=== PATIENT | female | born 1950 | race Caucasian/White ===

== ENCOUNTER 2019-11-23 04:20 | Day surgery (SDC) | payer OTHER ==
[2019-11-21 17:36] VITALS: BMI 26.7
--- OUTSIDE RECORDS SUMMARY | 2019-11-23 04:22 | XMS ---
:1950 Author Organization [facility] Support Name Relationship Address Phone [facility] Unavailable [address] [place] [address] [place] [id number] OLEG FERNANDEZ SON [address] [place] [address] Re-disclosure Warning The records that you are about to access may contain information from federally- assisted alcohol or drug abuse programs. If such information is present, then the following federally mandated warning applies: This information has been disclosed to you from records protected by federal confidentiality rules (42 CFR part 2). The federal rules prohibit you from making any further disclosure of this information unless further disclosure is expressly permitted by the written consent of the person to whom it pertains or as otherwise permitted by 42 CFR part 2. A general authorization for the release of medical or other information is NOT sufficient for this purpose. The Federal rules restrict any use of the information to criminally investigate or prosecute any alcohol or drug abuse patient.The records that you are about to access may contain highly sensitive health information, the redisclosure of which is protected by Article 27-F of the [facility] Public Health law. If you continue you may haveaccess to information: Regarding HIV / AIDS; Provided by facilities licensed or operated by the [facility] Office of Mental Health; or Provided by the [facility] Office for People With Developmental Disabilities. If such information is present, then the following [facility] mandated warning applies: This information has been disclosed to you from confidential records which are protected by state law. State law prohibits you from making any further disclosure of this information without the specific written consent of the person to whom it pertains, or as otherwise permitted by law. Any unauthorized further disclosure in violation of state law may result in a fine or prison sentence or both. A general authorization for the release of medical or other information is NOT sufficient authorization for further disclosure. Insurance Providers Payer name Policy type Policy ID Covered Covered libertarian's Policy P johann / Coverage libertarian ID relationship to [employer] Inf ormation type montanez [place] [id number] 1 HEALTH PLANS [place] [id number] 1 HEALTH PLANS Results ID Date Data Source [id number] 11/02/2019 12:00:00 AM EDT [facility] Name Value Range Interpretation Code Description Data Melissa rce(s) Supporting Document(s ) 2018-nCoV [facility] RNA XXX KATHERINE+probe- Imp This lab was ordered by [facility] and reported by [employer] ID Date Data Source [id number] 09/15/2019 12:00:00 AM EDT [facility] Name Value Range Interpretation Code Description Data Melissa rce(s) Supporting Document(s ) nCoV [facility] RNA XXX KATHERINE+probe- Imp This lab was ordered by [facility] and reported by [employer] ID Date Data Source [id number] 06/02/2019 04:02:00 PM EDT [facility] Name Value Range Interpretation Description Data Sup porting Code Source(s) Document(s ) SARS [facility] CORONAVIRUS 2 RNA This lab was ordered by [employer] and reported by [facility]. Procedure
[2019-11-23] MEDS ORDERED: PROPOFOL 20 ML ONE (13:46)
[2019-11-23] MEDS ORDERED: DEXAMETHASONE SOD PHOSPHATE 4 MG/1 ML VIAL ONE (13:47)
[2019-11-23] MEDS ORDERED: MIDAZOLAM HCL 2 MG/2 ML SINGLE DOSE VIAL ONE (13:47)
[2019-11-23] MEDS ORDERED: LIDOCAINE HCL/PF 2% SDV 5ML VIAL ONE (13:47)
[2019-11-23] MEDS ORDERED: EPHEDRINE SULFATE/0.9% NACL/PF 50 MG/10 ML SYRINGE NR ONE (13:47)
[2019-11-23] MEDS ORDERED: ROCURONIUM BROMIDE 50 MG/5 ML SYRINGE ONE (13:47)
--- NOTE | 2019-11-23 13:49 | HP ---
History & Physical Update - History History: No Change - Physical Physical: No Change - Assessment Assessment: No Change - Plan Plan: No Change (for lap nehal possible open; r/b/t/a's d/w the patient pre-op in the office and informed consent obtained here today.)
[2019-11-23] MEDS ORDERED: ceFAZolin SODIUM 1 GM VIAL ONE (15:34)
[2019-11-23] MEDS ORDERED: ceFAZolin SODIUM 1 GM VIAL IVPB ONE (15:38)
[2019-11-23] MEDS ORDERED: BUPIVACAINE HCL/PF 0.5% (5 MG/ML) 30 ML VIAL IJ ONE (15:47)
[2019-11-23] MEDS ORDERED: NEOSTIGMINE METHYLSULFATE 0.5 MG/1 ML - 10 ML MDV ONE (16:35)
[2019-11-23] MEDS ORDERED: GLYCOPYRROLATE 0.2 MG/1 ML VIAL ONE (16:35)
[2019-11-23] MEDS ORDERED: BENZOIN/ALOE VERA/STORAX/TOLU 58 ML BOTTLE ONE (16:36)
--- NOTE | 2019-11-23 17:04 | SURG ---
Surgery Heater Helper Note Heater Helper: MAGGY Barbosa Date of Service: 11/23/19 Diagnosis: cholelithasis Procedure: Laparoscopic cholecystectomy I was present for the entirety of the operative procedure. For further detail, please refer to operative report. Visit type - Case Type Case Type: Scheduled
--- NOTE | 2019-11-23 17:28 | OP ---
Operative Note - Note: Operative Date: 11/23/19 Pre-Operative Diagnosis: cholelithiasis/chronic cholecystitis Operation: laparoscopic cholecystectomy Findings: cholelithiasis/chronic cholecystitis Post-Operative Diagnosis: Same as Pre-op Surgeon: German Greene Physician Assistant: Birgit Greenberg Anesthesiologist/ROBOT OPERATOR: Brian Parker Anesthesia: General Specimens Removed: gallbladder and contents Estimated Blood Loss (mls): 15
[2019-11-23] MEDS ORDERED: ONDANSETRON 4 MG/2 ML VIAL IVPUSH PRN (17:33)
[2019-11-23] MEDS ORDERED: oxyCODONE HCL 5 MG TABLET PO PRN (17:33)
[2019-11-23] MEDS ORDERED: PROMETHAZINE HCL 25 MG/1 ML VIAL IVPUSH PRN (17:33)
--- NOTE | 2019-11-23 21:33 | PN ---
Teaching Attending Note Name of Resident: Zenobia Huddleston ATTENDING PHYSICIAN STATEMENT I saw and evaluated the patient. I reviewed the resident's note and discussed the case with the resident. I agree with the resident's findings and plan as documented. SUBJECTIVE: 69yoF with history of HTN, HLD, cardiomyopathy with normal LVEF, and chronic cholecystitis s/p laparoscopic cholecystectomy 11/[address] Greene who is admitted for further work up of intraoperative cardiac rhythm change. Compared to preop EKG, postop EKG shows new TWI in V1-V6 and III and aVF with flattened T waves in lead II. Patient denies any chest pain, palpitations, SOB, nausea, vomiting. Procedure was otherwise uncomplicated. Cardiology has been consulted and initial troponin post-op is negative. Patient complains of mild headache and gassiness at time of evaluation, denies other acute issues. OBJECTIVE: Last Vital Signs Temp Pulse Resp BP Pulse Ox 97.9 F 74 18 147/74 99 11/23/19 21:59 11/23/19 21:59 11/23/19 21:59 11/23/19 21:59 11/23/19 21:59 EXAM Gen: awake, alert, NAD HEENT: MMM CV: RRR, no MRG Resp: CTAB Abd: Soft, nontender, mildly distended. Laparoscopic incision sites closed wtihout drainage or surrounding erythema Ext: No peripheral edema Neuro: CN II-XII grossly intact Psych: AOx3 Laboratory Results - last 24 hr 11/23/19 18:50 Creatine Kinase 67 Troponin I < 0.02 ASSESSMENT AND PLAN: 69yoF with history of HTN, HLD, cardiomyopathy with normal LVEF, and chronic cholecystitis s/p laparoscopic cholecystectomy 11/[address] Greene admitted for observation of post-op EKG changes. Post-op EKG changes No known history of CAD although per preop documentation in chart she has history of cardiomyopathy and septal wall motion abnormality on prior echo New T wave inversions noted in inferior and lateral leads concerning for ischemia Patient is asymptomatic and initial troponin negative - tele - cycle troponins - serial EKG - cardiology following Chronic cholecystectomy s/p lap nehal POD 0 - management per surgery DVT ppx: SCD
[2019-11-24 01:29] LABS: ALBUMIN 3.2 g/dl (3.4-5.0); ALK PHOS 78 U/L (45-117); ANION GAP 9 MMOL/L (8-16); BILIRUBIN,TOTAL 0.3 mg/dL (0.2-1); BLOOD UREA NITROGEN 12.5 mg/dL (7-18); CALCIUM 9.2 mg/dL (8.5-10.1); CHLORIDE 111 mmol/L (98-107); CO2 23 mmol/L (21-32); CREATININE 1.2 mg/dL (0.55-1.3); GLUCOSE,RANDOM 162 mg/dL (74-106); MAGNESIUM 2.3 mg/dL (1.8-2.4); POTASSIUM 3.9 mmol/L (3.5-5.1); SGOT/AST 55 U/L (15-37); SGPT/ALT 62 U/L (13-61); SODIUM 143 mmol/L (136-145); TOT PROT 6.4 g/dl (6.4-8.2)
--- NOTE | 2019-11-24 02:21 | HP ---
CHIEF COMPLAINT: abnormal ekg HISTORY OF PRESENT ILLNESS: Ms. Hellen Mar is a 69 yo woman admitted for elective lap nehal; post-op erately found to have rhythm changes on monitor following fentanyl administration. EKG was done showing new t wave inversions compared to pre-op EKG. Ledger Clerk Dr. Nolasco notified. Patient reporting sensation of bloating in the upper abdomen/lower chest. 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, 2011) L ankle surgery 1999 Cataract surgery 2014 Social History: Smoking: No Alcohol: No Drugs: No Allergies tetracycline Allergy (Intermediate, Verified 11/21/19 17:37) Swelling hay Allergy (Intermediate, Uncoded 11/21/19 17:37) Swelling HOME MEDICATIONS: Home Medications Medication Instructions Recorded Multivitamin [Multiple Vitamins] 1 each PO DAILY 11/21/19 Fexofenadine HCl [Aruna Allergy] 60 mg PO PRN 11/23/19 oxyCODONE HCL [Roxicodone -] 5 mg PO Q6H PRN #15 tablet MDD 5 11/23/19 REVIEW OF SYSTEMS SEE HPI PHYSICAL EXAMINATION Vital Signs - 24 hr 11/23/19 11/23/19 11/23/19 11:05 16:55 17:10 Temperature 98.4 F 97.6 F Pulse Rate 73 76 74 Respiratory 20 16 16 Rate Blood Pressure 132/71 105/76 105/76 O2 Sat by Pulse 98 98 98 Oximetry (%) 11/23/19 11/23/19 11/23/19 17:25 17:40 17:55 Temperature Pulse Rate 72 54 L 62 Respiratory 16 16 14 Rate Blood Pressure 116/77 134/60 130/66 O2 Sat by Pulse 98 100 100 Oximetry (%) 11/23/19 11/23/19 11/23/19 18:10 18:25 18:40 Temperature Pulse Rate 64 74 63 Respiratory 14 16 16 Rate Blood Pressure 132/60 122/62 132/83 O2 Sat by Pulse 100 100 100 Oximetry (%) 11/23/19 11/23/19 11/23/19 18:55 19:10 19:25 Temperature Pulse Rate 71 72 66 Respiratory 18 16 16 Rate Blood Pressure 121/61 145/90 142/80 O2 Sat by Pulse 100 100 100 Oximetry (%) 11/23/19 11/23/19 11/23/19 19:40 20:11 20:30 Temperature 98.1 F 97.9 F Pulse Rate 80 68 74 Respiratory 16 14 18 Rate Blood Pressure 145/68 146/78 147/74 O2 Sat by Pulse 100 100 99 Oximetry (%) 11/23/19 11/23/19 11/23/19 21:36 21:40 21:51 Temperature 97.9 F 97.9 F Pulse Rate 74 74 Respiratory 18 18 18 Rate Blood Pressure 147/74 147/74 O2 Sat by Pulse 99 99 99 Oximetry (%) 11/23/19 11/24/19 21:59 01:27 Temperature 97.9 F 97.9 F Pulse Rate 74 84 Respiratory 18 20 Rate Blood Pressure 147/74 133/61 O2 Sat by Pulse 99 94 L Oximetry (%) GENERAL: Awake, alert, and fully oriented, in no acute distress. HEAD: Normal with no signs of trauma. EYES: Pupils equal, round and reactive to light, extraocular movements intact, sclera anicteric, conjunctiva clear. EARS, NOSE, THROAT: Ears normal, nares patent, oropharynx clear without exudates. Moist mucous membranes. NECK: Normal range of motion, supple without lymphadenopathy LUNGS: Breath sounds equal, clear to auscultation bilaterally. No wheezes, and no crackles. No accessory muscle use. HEART: Regular rate and rhythm, normal S1 and S2 without murmur, rub or gallop. ABDOMEN: Soft, nontender, not distended, normoactive bowel sounds, no guarding, no rebound, no masses. Surgical incision sites with dried blood. LOWER EXTREMITIES: 2+ pulses, warm, well-perfused. No calf tenderness. No peripheral edema. PSYCHIATRIC: Cooperative. Good eye contact. Appropriate mood and affect. SKIN: Warm, dry, normal turgor, no rashes or lesions noted, normal capillary refill. Laboratory Results - last 24 hr 11/23/19 11/24/19 18:50 00:15 Sodium 143 Potassium 3.9 Chloride 111 H Carbon Dioxide 23 Anion Gap 9 BUN 12.5 Creatinine 1.2 Est GFR (CKD-EPI)AfAm 54.16 Est GFR (CKD-EPI)NonAf 46.73 Random Glucose 162 H Calcium 9.2 Magnesium 2.3 Total Bilirubin 0.3 AST 55 H ALT 62 H Alkaline Phosphatase 78 Creatine Kinase 67 Troponin I < 0.02 < 0.02 Total Protein 6.4 Albumin 3.2 L ASSESSMENT/PLAN: Ms. Hellen Mar is a 69 yo woman POD1 following elective lap cholecystectomy; post-operately found to have rhythm changes on monitor with EKG showing new t- wave inversions compared to pre-op EKG. #New EKG changes - Cardiology consulted will follow and evaluate pt in am - First and second troponin negative - F/u CBC, CMP, Mg - F/u am EKG #POD following lap nehal - Oxycodone prn - Advance diet as tolerated DVT prophylaxis: SCDs FEN - No standing fluids - Monitor am labs - Advance diet as tolerated Dispo: Tele FULL CODE Family Medical History Family History: As Documented Visit type - Medication Review Med list reviewed for High Risk Meds patients 65 and older: Yes - Emergency Visit Emergency Visit: Yes ED Registration Date: 11/23/19 Care time: The patient presented to the Emergency Department on the above date and was hospitalized for further evaluation of their emergent condition. - New Patient This patient is new to me today: Yes Date on this admission: 11/24/19 - Critical Care Critical Care patient: No ATTENDING PHYSICIAN STATEMENT I saw and evaluated the patient. I reviewed the resident's note and discussed the case with the resident. I agree with the resident's findings and plan as documented. SUBJECTIVE: OBJECTIVE: ASSESSMENT AND PLAN:
--- OUTSIDE RECORDS SUMMARY | 2019-11-24 06:32 | XMS ---
:[address] [facility] Support Name Relationship Address Phone [facility] Unavailable [address] [place] [address] [place] [phone] OLEG FERNANDEZ SON [address] [place] [address] Re-disclosure Warning The records that you are [...] is protected by Article 27-F of the [facility] Public Health law. If you continue you may haveaccess to information: Regarding HIV / AIDS; Provided by facilities licensed or operated by the [facility] Office of Mental Health; or Provided by the [facility] Office for People With Developmental Disabilities. If such information is present, then the following [facility] mandated warning applies: This information has been [...] law may result in a fine or fci sentence or both. A general authorization for the release of medical or other information is NOT sufficient authorization for further disclosure. Insurance Providers Payer name Policy type Policy ID Covered Covered democrat's Policy P johann / Coverage democrat ID relationship to [employer] Inf ormation type montanez [place] [id number] 1 HEALTH PLANS [place] [id number] 1 HEALTH PLANS Results ID Date Data Source [id number] 11/20/2019 11:50:00 AM EDT [facility] Name Value Range Interpretation Description Data Sup porting Code Source(s) Document(s ) SARS [facility] coronavirus 2 RNA This lab was ordered by [facility] and reported by [facility]. ID Date Data Source [id number] 11/02/2019 12:00:00 AM EDT [facility] Name Value Range Interpretation Code Description Data Melissa rce(s) Supporting Document(s ) nCoV [facility] RNA XXX KATHERINE+probe- Imp This lab was ordered by [facility] and reported by [employer] ID Date Data Source [id number] 09/15/2019 12:00:00 AM EDT [facility] Name Value Range Interpretation Code Description Data Melissa rce(s) Supporting Document(s ) 2018-nCoV [facility] RNA XXX KATHERINE+probe- Imp This lab was ordered by [facility] and reported by [employer] ID Date Data Source [id number] 06/02/2019 04:02:00 PM EDT [facility] Name Value Range Interpretation Description Data Sup porting Code Source(s) Document(s ) SARS [facility] CORONAVIRUS 2 RNA This lab was ordered by [facility] and reported by [facility]. Procedure
[2019-11-24 07:36] LABS: BASO % 0.1 % (0-2.0); EOS % 0.1 % (0-4.5); HEMATOCRIT 39.1 % (32.4-45.2); HEMOGLOBIN 13.5 GM/dL (10.7-15.3); LYMPH % 10.7 % (8-40); MCH 31.8 pg (25.7-33.7); MCHC 34.5 g/dl (32.0-36.0); MEAN PLT VOLUME 7.1 fl (7.5-11.1); MONO % 7.5 % (3.8-10.2); NEUT % 81.6 % (42.8-82.8); PLATELET COUNT 213 K/MM3 (134-434); RBC 4.25 M/mm3 (3.60-5.2); RDW 13.3 % (11.6-15.6); WHITE BLOOD COUNT 7.4 K/mm3 (4.0-10.0)
--- NOTE | 2019-11-24 10:27 | PN ---
Progress Note (short form) - Note Progress Note: Surgery: Pt without any CP/SOB. No nausea or emesis with clears, tolerated clears. Vital Signs Period Temp Pulse Resp BP Sys/Mcmanus Pulse Ox Last 24 Hr 97.6 F-98.4 F 54-84 14-20 105-147/60-90 94-100 GEN: A&0x3, NAD ABD: soft, non-distended, non-tender. Inc c/d/i with dermabond LE: no calf tenderness or swelling noted b/l CBC, BMP 11/24/19 06:15 11/24/19 00:15 Laboratory Tests 11/24/19 00:15 Total Bilirubin 0.3 AST 55 H ALT 62 H Alkaline Phosphatase 78 Troponin I < 0.02 Total Protein 6.4 A/P: 78 yo femlae s/p Lap nehal, POD#1 Advanced diet to regular for lunch D/w Dr. Greene and may discharge as per the medical service. No acute surgical issues and may f/u with Dr. Greene next week in the office
[2019-11-24 11:20] LABS: ALK PHOS 74 U/L (45-117); ANION GAP 7 MMOL/L (8-16); BILIRUBIN,TOTAL 0.5 mg/dL (0.2-1); BLOOD UREA NITROGEN 13.6 mg/dL (7-18); CALCIUM 9.3 mg/dL (8.5-10.1); CHLORIDE 109 mmol/L (98-107); CO2 24 mmol/L (21-32); CREATININE 0.8 mg/dL (0.55-1.3); GLUCOSE,RANDOM 109 mg/dL (74-106); POTASSIUM 3.7 mmol/L (3.5-5.1); SGOT/AST 34 U/L (15-37); SGPT/ALT 53 U/L (13-61); SODIUM 141 mmol/L (136-145); TOT PROT 6.1 g/dl (6.4-8.2)
[2019-11-24 11:29] VITALS: BP 122/61; PULSE 78; TEMP 98.1
--- NOTE | 2019-11-24 11:46 | OP ---
DATE OF OPERATION: 11/23/2019 PREOPERATIVE DIAGNOSIS: Cholelithiasis and chronic cholecystitis. PREOPERATIVE DIAGNOSIS: Cholelithiasis and chronic cholecystitis. PROCEDURE: Laparoscopic cholecystectomy. SURGEON: German Greene MD WARP PREPARER: Birgit Greenberg PA-C ANESTHESIA: General. OPERATIVE FINDINGS: Chronic cholecystitis and cholelithiasis. The rest of the findings were unremarkable. DESCRIPTION OF PROCEDURE: The patient was placed on the operating room table in supine position. After the induction of general anesthesia, the patient's abdomen was prepped with ChloraPrep and draped in sterile fashion. Time-out was taken and then pneumoperitoneum established above the umbilicus using a Veress needle. Once 15 mm of intra-abdominal pressure was obtained, a 5-mm port was placed at the umbilicus. Additional lateral 5-mm ports and a subxiphoid 12-mm port were placed and laparoscopy carried out, and the previously noted findings were observed. The gallbladder was placed on cephalad and lateral traction, and dissection was begun at the neck of the gallbladder where the peritoneum was opened medially and laterally using blunt and sharp dissection and electrocautery. Dissection continued in the triangle of Calot where the cystic duct was identified coursing from the neck of the gallbladder distally to the common bile duct. It was dissected proximally and distally for length. Similarly, the artery was similarly identified and dissected. A critical view of safety was taken, and then the cystic duct divided proximally and distally using Endo Gracie after it was clipped twice proximally and distally with large hemoclips. The artery was similarly clipped and divided. Hemostasis was checked for and noted to be good and then the gallbladder was removed from the liver bed in a retrograde fashion using electrocautery. Prior to removal from the edge of the liver, hemostasis was again verified and then the gallbladder removed from the edge of the liver, placed in an EndoCatch, and brought out through the subxiphoid port. Pneumoperitoneum was reestablished, hemostasis verified again, and then the 5-mm lateral and subxiphoid ports were removed under laparoscopic vision without evidence of bleeding from the port sites. The umbilical port was removed and the pneumoperitoneum evacuated. All port sites were infiltrated with 0.5% Marcaine and the skin edges closed with 4-0 Biosyn in a subcuticular and continuous fashion. Steri-Strips and Band-Aid dressings were placed and the procedure terminated at this point and the patient aroused from general anesthesia and transferred to the post anesthesia care unit in stable condition awake and alert. ESTIMATED BLOOD LOSS: 15 mL. REPLACEMENTS: Crystalloid. DRAINS: None. SPECIMENS: Gallbladder and contents to pathology. I, German Greene, was physically present in the operating room from the time the patient was placed on the operating room table until she was transferred to the post anesthesia care unit in [employer] company. MD STEFFANIE Galicia/[id number] MTDD
--- NOTE | 2019-11-24 12:04 | CON.CARD ---
Cardiology Consult (text) - Consultation Consultation Note: cc: elective cholecystectomy hpi: 69 f hx lbbb, hld, htn, here for elective nehal. Pt had her surgery and during the monitor showed change in ecg morphology and ecg done appeared different than baseline. Pt had no cardiac sxs. No cp sob palps dizzy loc pnd orthopnea, le edema. Surgery went well. Sees dr lynn for cardio. pmh: per hpi psh: hip surgery social: no tob fam: no premature cad, scd ros: per hpi; all others nl meds: Ambulatory Orders Multivitamin [Multiple Vitamins] 1 each PO DAILY 11/21/19 Fexofenadine HCl [Aruna Allergy] 60 mg PO PRN 11/23/19 oxyCODONE HCL [Roxicodone -] 5 mg PO Q6H PRN #15 tablet MDD 5 11/23/19 pe: Vital Signs Period Temp Pulse Resp BP Sys/Mcmanus Pulse Ox Last 24 Hr 97.6 F-98.1 F 54-84 14-20 105-147/60-90 94-100 nad no jvd rrr s1s2 no mrg cta bl nl eff aao3 no le e/c/c abd nt nd pos bs no jaundice diaphoresis pos dp pt no carotid bruits Laboratory Last Values WBC 7.4 K/mm3 (4.0-10.0) 11/24/19 06:15 RBC 4.25 M/mm3 (3.60-5.2) 11/24/19 06:15 Hgb 13.5 GM/dL (10.7-15.3) 11/24/19 06:15 Hct 39.1 % (32.4-45.2) 11/24/19 06:15 MCV 92.0 fl (80-96) 11/24/19 06:15 MCH 31.8 pg (25.7-33.7) 11/24/19 06:15 MCHC 34.5 g/dl (32.0-36.0) 11/24/19 06:15 RDW 13.3 % (11.6-15.6) 11/24/19 06:15 Plt Count 213 K/MM3 (134-434) 11/24/19 06:15 MPV 7.1 fl (7.5-11.1) L 11/24/19 06:15 Absolute Neuts (auto) 6.1 K/mm3 (1.5-8.0) 11/24/19 06:15 Neutrophils % 81.6 % (42.8-82.8) 11/24/19 06:15 Lymphocytes % 10.7 % (8-40) D 11/24/19 06:15 Monocytes % 7.5 % (3.8-10.2) 11/24/19 06:15 Eosinophils % 0.1 % (0-4.5) D 11/24/19 06:15 Basophils % 0.1 % (0-2.0) 11/24/19 06:15 Nucleated RBC % 0 % (0-0) 11/24/19 06:15 Sodium 141 mmol/L (136-145) 11/24/19 06:15 Potassium 3.7 mmol/L (3.5-5.1) 11/24/19 06:15 Chloride 109 mmol/L (98-107) H 11/24/19 06:15 Carbon Dioxide 24 mmol/L (21-32) 11/24/19 06:15 Anion Gap 7 MMOL/L (8-16) L 11/24/19 06:15 BUN 13.6 mg/dL (7-18) 11/24/19 06:15 Creatinine 0.8 mg/dL (0.55-1.3) 11/24/19 06:15 Est GFR (CKD-EPI)AfAm 88.42 11/24/19 06:15 Est GFR (CKD-EPI)NonAf 76.29 11/24/19 06:15 Random Glucose 109 mg/dL (74-106) H 11/24/19 06:15 Calcium 9.3 mg/dL (8.5-10.1) 11/24/19 06:15 Magnesium 2.3 mg/dL (1.8-2.4) 11/24/19 00:15 Total Bilirubin 0.5 mg/dL (0.2-1) 11/24/19 06:15 AST 34 U/L (15-37) 11/24/19 06:15 ALT 53 U/L (13-61) 11/24/19 06:15 Alkaline Phosphatase 74 U/L (45-117) 11/24/19 06:15 Creatine Kinase 89 U/L (26-192) 11/24/19 06:15 Troponin I < 0.02 ng/ml (0.00-0.05) 11/24/19 06:15 Total Protein 6.1 g/dl (6.4-8.2) L 11/24/19 06:15 Albumin 3.0 g/dl (3.4-5.0) L 11/24/19 06:15 tele: sr, lbbb ecg: sr, nl intervals, ant/lat twis a/p: 69 f hx lbbb, hld, htn, here for elective nehal. 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 Now that hr is faster LBBB has appeared again. This is benign, no further cardiac testing needed at this time. htn: -stable, controlled hld: -stable chronic systolic chf/cardiomyopathy: -known hx of low nl lvef on echo. no signs acs or chf here. Cont outpt cardio f/u.
--- NOTE | 2019-11-24 13:21 | EKG ---
Test Reason : Blood Pressure : / mmHG Vent. Rate : 072 BPM Atrial Rate : 072 BPM P-R Int : 162 ms QRS Dur : 132 ms QT Int : 450 ms P-R-T Axes : 053 -28 087 degrees QTc Int : 492 ms NORMAL SINUS RHYTHM LEFT BUNDLE BRANCH BLOCK ABNORMAL ECG WHEN COMPARED WITH ECG OF 11-AUG-2012 18:44, NO SIGNIFICANT CHANGE WAS FOUND Confirmed by CRESENCIO URENA MD ([id number]) on 11/24/2019 1:20:48 PM Referred By: German Greene Confirmed By:CRESENCIO URENA MD
--- NOTE | 2019-11-24 13:23 | EKG ---
Test Reason : Blood Pressure : / mmHG Vent. Rate : 052 BPM Atrial Rate : 052 BPM P-R Int : 156 ms QRS Dur : 096 ms QT Int : 510 ms P-R-T Axes : 051 000 -18 degrees QTc Int : 474 ms SINUS BRADYCARDIA ANTERIOR INFARCT , AGE UNDETERMINED T WAVE ABNORMALITY, CONSIDER LATERAL ISCHEMIA ABNORMAL ECG WHEN COMPARED WITH ECG OF 11-AUG-2012 18:44, VENT. RATE HAS DECREASED BY 31 BPM LEFT BUNDLE BRANCH BLOCK IS NO LONGER PRESENT ANTERIOR INFARCT IS NOW PRESENT Confirmed by CRESENCIO URENA MD ([id number]) on 11/24/2019 1:23:27 PM Referred By: German Greene Confirmed By:CRESENCIO URENA MD
--- NOTE | 2019-11-24 14:11 | PN ---
Physical Exam: SUBJECTIVE: Patient seen and examined OBJECTIVE: Vital Signs Period Temp Pulse Resp BP Sys/Mcmanus Pulse Ox Last 24 Hr 97.6 F-98.1 F 54-84 14-20 105-147/60-90 94-100 GENERAL: The patient is awake, alert, and fully oriented, in no acute distress. HEAD: Normal with no signs of trauma. EYES: PERRL, extraocular movements intact, sclera anicteric, conjunctiva clear. No ptosis. ENT: Ears normal, nares patent, oropharynx clear without exudates, moist mucous membranes. NECK: Trachea midline, full range of motion, supple. LUNGS: Breath sounds equal, clear to auscultation bilaterally, no wheezes, no crackles, no accessory muscle use. HEART: Regular rate and rhythm, S1, S2 without murmur, rub or gallop. ABDOMEN: Soft, nontender, nondistended, normoactive bowel sounds, no guarding, no rebound, no hepatosplenomegaly, no masses. EXTREMITIES: 2+ pulses, warm, well-perfused, no edema. NEUROLOGICAL: Cranial nerves II through XII grossly intact. Normal speech, gait not observed. PSYCH: Normal mood, normal affect. SKIN: Warm, dry, normal turgor, no rashes or lesions noted Laboratory Results - last 24 hr 11/23/19 11/24/19 11/24/19 18:50 00:15 06:15 WBC 7.4 RBC 4.25 Hgb 13.5 Hct 39.1 MCV 92.0 MCH 31.8 MCHC 34.5 RDW 13.3 Plt Count 213 MPV 7.1 L Absolute Neuts (auto) 6.1 Neutrophils % 81.6 Lymphocytes % 10.7 D Monocytes % 7.5 Eosinophils % 0.1 D Basophils % 0.1 Nucleated RBC % 0 Sodium 143 Potassium 3.9 Chloride 111 H Carbon Dioxide 23 Anion Gap 9 BUN 12.5 Creatinine 1.2 Est GFR (CKD-EPI)AfAm 54.16 Est GFR (CKD-EPI)NonAf 46.73 Random Glucose 162 H Calcium 9.2 Magnesium 2.3 Total Bilirubin 0.3 AST 55 H ALT 62 H Alkaline Phosphatase 78 Creatine Kinase 67 Troponin I < 0.02 < 0.02 Total Protein 6.4 Albumin 3.2 L 11/24/19 06:15 WBC RBC Hgb Hct MCV MCH MCHC RDW Plt Count MPV Absolute Neuts (auto) Neutrophils % Lymphocytes % Monocytes % Eosinophils % Basophils % Nucleated RBC % Sodium 141 Potassium 3.7 Chloride 109 H Carbon Dioxide 24 Anion Gap 7 L BUN 13.6 Creatinine 0.8 Est GFR (CKD-EPI)AfAm 88.42 Est GFR (CKD-EPI)NonAf 76.29 Random Glucose 109 H Calcium 9.3 Magnesium Total Bilirubin 0.5 AST 34 ALT 53 Alkaline Phosphatase 74 Creatine Kinase 89 Troponin I < 0.02 Total Protein 6.1 L Albumin 3.0 L Active Medications Generic Name Dose Route Start Last Admin Trade Name Freq PRN Reason Stop Dose Admin Ondansetron HCl 4 mg 11/23/19 17:33 Zofran Injection IVPUSH Q6H PRN NAUSEA AND/OR VOMITING Oxycodone HCl 10 mg 11/23/19 17:33 Roxicodone - PO Q4H PRN PAIN LEVEL 6-10 Promethazine HCl 12.5 mg 11/23/19 17:33 Phenergan Injection - IVPUSH Q6H PRN NAUSEA-FOR RESCUE AFTER 15 MIN ASSESSMENT/PLAN: ATTENDING PHYSICIAN STATEMENT I saw and evaluated the patient. I reviewed the resident's note and discussed the case with the resident. I agree with the resident's findings and plan as documented. SUBJECTIVE: OBJECTIVE: ASSESSMENT AND PLAN:
--- NOTE | 2019-11-24 14:11 | DS ---
Physical Exam: SUBJECTIVE: Patient seen and examined at bedside. No acute events reported overnight. Tolerating diet well. Endorses flatus. OBJECTIVE: Vital Signs Period Temp Pulse Resp BP Sys/Mcmanus Pulse Ox Last 24 Hr 97.6 F-98.1 F 54-84 14-20 105-147/60-90 94-100 PHYSICAL EXAM GENERAL: AAOx3 HEENT: NCAT, PERRLA, EOMI, sclera anicteric, conjunctiva clear NECK: Normal ROM, supple, no lymphadenopathy, JVD, or masses LUNGS: CTABL no wheezes/ rhonchi/ rales. No distress, speaks in full sentences. No increased work of breathing. HEART: RRR, normal S1 S2, no M/R/G, peripheral pulses 2+ and equal b/l ABDOMEN: Soft, tenderness upon palpation in ULQ, + BS. No guarding or rebound. No hepatomegaly or splenomegaly. 3 laproscopic incisions on abdomen sealed with dermabond MSK: ROM WNL EXTREMITIES: Normal inspection. No peripheral edema. No clubbing or cyanosis. NEUROLOGICAL: CN II-XII intact. Normal speechSKIN: no rashes or lesions noted LABS Laboratory Results - last 24 hr CBC, BMP 11/24/19 06:15 11/24/19 06:15 11/23/19 11/24/19 11/24/19 18:50 00:15 06:15 WBC 7.4 RBC 4.25 Hgb 13.5 Hct 39.1 MCV 92.0 MCH 31.8 MCHC 34.5 RDW 13.3 Plt Count 213 MPV 7.1 L Absolute Neuts (auto) 6.1 Neutrophils % 81.6 Lymphocytes % 10.7 D Monocytes % 7.5 Eosinophils % 0.1 D Basophils % 0.1 Nucleated RBC % 0 Sodium 143 Potassium 3.9 Chloride 111 H Carbon Dioxide 23 Anion Gap 9 BUN 12.5 Creatinine 1.2 Est GFR (CKD-EPI)AfAm 54.16 Est GFR (CKD-EPI)NonAf 46.73 Random Glucose 162 H Calcium 9.2 Magnesium 2.3 Total Bilirubin 0.3 AST 55 H ALT 62 H Alkaline Phosphatase 78 Creatine Kinase 67 Troponin I < 0.02 < 0.02 Total Protein 6.4 Albumin 3.2 L 11/24/19 06:15 WBC RBC Hgb Hct MCV MCH MCHC RDW Plt Count MPV Absolute Neuts (auto) Neutrophils % Lymphocytes % Monocytes % Eosinophils % Basophils % Nucleated RBC % Sodium 141 Potassium 3.7 Chloride 109 H Carbon Dioxide 24 Anion Gap 7 L BUN 13.6 Creatinine 0.8 Est GFR (CKD-EPI)AfAm 88.42 Est GFR (CKD-EPI)NonAf 76.29 Random Glucose 109 H Calcium 9.3 Magnesium Total Bilirubin 0.5 AST 34 ALT 53 Alkaline Phosphatase 74 Creatine Kinase 89 Troponin I < 0.02 Total Protein 6.1 L Albumin 3.0 L HOSPITAL COURSE: 69 y/o Lady admitted for elective lap nehal; post-operately found to have rhythm changes on monitor following fentanyl administration. EKG was done showing new t wave inversions compared to pre-op EKG. Carburetor Specialist Dr. Nolasco consulted but Dr. Ye saw the patient because he was covering for Dr. Nolasco. Dr. Ye stated that pt has baseline LBBB that was evaluated as outpt with recent normal cors on cta and unremarkable echo Cardio believes the pt likely has rate related LBBB and when HR lowered during anesthesia ecg showed t wave changes. Stated the changes were benign, no further cardiac testing needed at this time and recommended outpatient followup. Patient was discharged on 11/23 with outpt cardio follow up. Date of Admission:11/23/19 11/23/19- EKG- sinus bradycardia, anterior infarct, age undetermined. t wave abnormality consider lateral ischemia 11/24/19-ekg- NSR,LBB Date of Discharge: 11/24/19 Minutes to complete discharge: 36 Discharge Summary Problems reviewed: Yes Reason For Visit: CALCULUS OF GALLBLADDER Condition: Stable - Instructions Diet, Activity, Other Instructions: Dr. Greene Discharge Instructions Dear IVANA FERNANDEZ, Post Operative Instructions Physical activity Resume your normal everyday activity as tolerated no heavy lifting or exercise until seen by your surgeon. You may walk unlimited amounts of and climb stairs. You may resume driving the car when you feel safe and comfortable behind the wheel. Wound care You have a liquid bandage over your incisions. This will come off slowly on its own over the next few weeks. Please avoid picking at it if you notice it flaking. You may shower starting tomorrow. When showering allow soap and water to run over the incision. Do not scrub, pat dry after showering. Diet There are no dietary restrictions. Eat healthy, high-fiber foods. Drink 6 to 8 glasses of liquid each day. This will assist in keeping your bowels are regular. Pain management You may take Tylenol or acetaminophen or Ibuprofen (for example, Motrin, Advil etc.) Any pain prescription medication ordered should be taken as prescribed for moderate to severe pain. Call Dr. Greene for any of the following: Severe pain not relieved by medication Fever of 101 or higher Excessive bleeding or drainage on dressing Inability to urinate Call the office at [phone] for a post operative appointment in 7 - 10 days. Reference #: [id number] MEDICINE INSTRUCTIONS: Your visit: You were admitted to the hospital for abnormal EKG findings during your surgery. We found no new abnormalities during your stay. You were seen by a cut in worker during your visit who recommended outpatient follow up. Medications changes: -Continue to take home medications as prescribed. Follow up: - Please follow-up with you cut in worker Dr. Nolasco in 1 week to go over your EKG findings during the surgery and for further testing. - Visit with your Primary Care Provider Dr. Machuca in 2 weeks. -Dr. Greene surgery in 7-10 days. Additional Instructions: -You are being discharged to your home. -Please return to the Emergency Department if you experience worsening pain, fevers, chills, shortness of breath, or chest pain, or if you experience any worsening, new or concerning symptoms. Referrals: Héctor Machuca MD [Staff Physician] - 1 Week Arley Nolasco MD [Staff Physician] - 1 Week (Please follow up for abnormal EKG findings during surgery.) Disposition: HOME - Home Medications Comprehensive Discharge Medication List: Ambulatory Orders Multivitamin [Multiple Vitamins] 1 each PO DAILY 11/21/19 Fexofenadine HCl [Aruna Allergy] 60 mg PO PRN 11/23/19 oxyCODONE HCL [Roxicodone -] 5 mg PO Q6H PRN #15 tablet MDD 5 11/23/19 This patient is new to me today: Yes Date on this admission: 11/25/19 Emergency Visit: No Critical Care patient: No - Discharge Referral Referred to [facility] No ATTENDING PHYSICIAN STATEMENT I saw and evaluated the patient. I reviewed the resident's note and discussed the case with the resident. I agree with the resident's findings and plan as documented. SUBJECTIVE: OBJECTIVE: ASSESSMENT AND PLAN:
--- NOTE | 2019-11-24 15:33 | PN ---
Teaching Attending Note Name of Resident: Jerrell Lea ATTENDING PHYSICIAN STATEMENT I saw and evaluated the patient. I reviewed the resident's note and discussed the case with the resident. I agree with the resident's findings and plan as documented. SUBJECTIVE: Feels well, tolerating oral intake, passing flatus. No CP/palpitations. OBJECTIVE: Afebrile, Hemodynamically Stable Last Vital Signs Temp Pulse Resp BP Pulse Ox 98.1 F 78 20 122/61 94 L 11/24/19 09:00 11/24/19 09:00 11/24/19 09:00 11/24/19 09:00 11/24/19 09:00 HEENT - Atraumatic, Normocephalic. Heart - S1, S2, RRR Lungs - clear to auscultation Abdomen - Trochar incision sites clean, soft. Bowel Sounds normal. Extremities - no edema, no calf tenderness. Neuro - AAO x 3. Tone/Power normal. Laboratory Results - last 24 hr 11/23/19 11/24/19 11/24/19 18:50 00:15 06:15 WBC 7.4 RBC 4.25 Hgb 13.5 Hct 39.1 MCV 92.0 MCH 31.8 MCHC 34.5 RDW 13.3 Plt Count 213 MPV 7.1 L Absolute Neuts (auto) 6.1 Neutrophils % 81.6 Lymphocytes % 10.7 D Monocytes % 7.5 Eosinophils % 0.1 D Basophils % 0.1 Nucleated RBC % 0 Sodium 143 Potassium 3.9 Chloride 111 H Carbon Dioxide 23 Anion Gap 9 BUN 12.5 Creatinine 1.2 Est GFR (CKD-EPI)AfAm 54.16 Est GFR (CKD-EPI)NonAf 46.73 Random Glucose 162 H Calcium 9.2 Magnesium 2.3 Total Bilirubin 0.3 AST 55 H ALT 62 H Alkaline Phosphatase 78 Creatine Kinase 67 Troponin I < 0.02 < 0.02 Total Protein 6.4 Albumin 3.2 L 11/24/19 06:15 WBC RBC Hgb Hct MCV MCH MCHC RDW Plt Count MPV Absolute Neuts (auto) Neutrophils % Lymphocytes % Monocytes % Eosinophils % Basophils % Nucleated RBC % Sodium 141 Potassium 3.7 Chloride 109 H Carbon Dioxide 24 Anion Gap 7 L BUN 13.6 Creatinine 0.8 Est GFR (CKD-EPI)AfAm 88.42 Est GFR (CKD-EPI)NonAf 76.29 Random Glucose 109 H Calcium 9.3 Magnesium Total Bilirubin 0.5 AST 34 ALT 53 Alkaline Phosphatase 74 Creatine Kinase 89 Troponin I < 0.02 Total Protein 6.1 L Albumin 3.0 L Current Medications Generic Name Dose Route Start Last Admin Trade Name Freq PRN Reason Stop Dose Admin Ondansetron HCl 4 mg 11/23/19 17:33 Zofran Injection IVPUSH Q6H PRN NAUSEA AND/OR VOMITING Oxycodone HCl 10 mg 11/23/19 17:33 Roxicodone - PO Q4H PRN PAIN LEVEL 6-10 Promethazine HCl 12.5 mg 11/23/19 17:33 Phenergan Injection - IVPUSH Q6H PRN NAUSEA-FOR RESCUE AFTER 15 MIN Home Medications Medication Instructions Recorded Multivitamin [Multiple Vitamins] 1 each PO DAILY 11/21/19 Fexofenadine HCl [Aruna Allergy] 60 mg PO PRN 11/23/19 oxyCODONE HCL [Roxicodone -] 5 mg PO Q6H PRN #15 tablet MDD 5 11/23/19 ASSESSMENT AND PLAN: 69 year old female with history of HTN, HLD, Cardiomyopathy/Chronic Systolic CHF, LBBB, Chronic Cholecystitis s/p laparoscopic cholecystectomy 11/[address] Greene who is admitted for further work up of intraoperative cardiac rhythm change. Compared to preop EKG, postop EKG shows new TWI in V1-V6 and III and aVF with flattened T waves in lead II. Patient denies any chest pain, palpitations, SOB, nausea, vomiting. Procedure was otherwise uncomplicated. 1. Amberly-operative ECG changes Asymptomatic, TropI negative Hx Systolic CHF/Cardiomyopathy and septal wall motion abnormality - atble, no evidence of decompensated CHF Hx LBBB already investigated as out-patient with normal coronary arteries on CTA. Evaluated by Cardio - cleared for discharge with no further work-up or monitoring required. Out-patient Cardiology follow up 2. POD 1 s/p Lap Cholecystectomy for chronic cholecystitis. tolerating oral intake Cleared by surgery for discharge. Medically and Surgically cleared for discharge.
--- NOTE | 2019-11-25 19:14 | PATH ---
Surgical Pathology Report Patient Name: IVANA FERNANDEZ [facility]. Rec. #: [id number] /Age/Gender: 1950 (Age: 69) / F Account: <[id number]> Location: [facility] Taken: 11/23/2019 Received: 11/24/2019 Reported: 11/25/2019 Physicians: German Greene MD Specimen(s) Received GALLBLADDER Clinical History Calculus the gallbladder Final Diagnosis GALLBLADDER, LAPAROSCOPIC CHOLECYSTECTOMY: CHRONIC CHOLECYSTITIS, CHOLELITHIASIS, AND FOCAL ADENOMYOMATOUS HYPERPLASIA. ONE BENIGN PERIDUCTAL LYMPH NODE (0/1). Electronically Signed Bev Flowers M.D. Gross Description Received in formalin, labeled "gallbladder," is a 7.2 x 2.2 x 2.0 cm. gallbladder with a 0.2 cm. in length portion of cystic duct attached. There is a 1.4 x 0.8 x 0.6 cm rg brown periductal lymph node present. The outer surface is rg-mcguire with a focal defect and varies from smooth to shaggy. The lumen contains green, tenacious bile as well as 5 brown, irregular choleliths ranging from 0.9-1.6 cm in greatest dimension. The mucosa is green and velvety with focal erosions. There are focal submucosal cystic spaces at the fundus of the gallbladder. The wall of the gallbladder averages 0.1 cm. in thickness. Lithographic Artist sections are submitted in 3 cassettes as follows: 1-cystic duct margin and one bisected lymph node; 2-fundic submucosal cystic spaces; 3-uninvolved special service representative gallbladder. [facility]
== END 2019-11-24 16:27 | disposition home or self-care (01) ==
LOC: JASU-SURG 04:20 → J4W 20:32 → UNDOADMIN 21:59 → JASU-SURG 22:51 → J4W 22:51 → JASU-SURG 11-24 16:27
PROVIDERS: ATTEND Surgery
PROC: 0FT44ZZ Resection of Gallbladder, Percutaneous Endoscopic Approach (ICD-10-PCS; principal; 2019-11-23 15:00)
DX: K80.10 Calculus of gallbladder with chronic cholecystitis without obstruction (principal)
CPT/HCPCS: 36415; 80053; 82550; 83735; 84484; 85025; 93005; 93010; 94760

== ENCOUNTER 2020-04-29 12:15 | Emergency (ER) | payer OTHER ==
[2020-04-29 12:30] VITALS: TEMP 97.7; BMI 31.8
[2020-04-29] MEDS ORDERED: BAMLANIVIMAB 700 MG in SODIUM CHLORIDE 250 ML IVPB ONE (12:50)
[2020-04-29 13:24] LABS: BASO % 0.6 % (0-2.0); EOS % 0.4 % (0-4.5); HEMATOCRIT 43.6 % (32.4-45.2); HEMOGLOBIN 15.1 GM/dL (10.7-15.3); LYMPH % 25.2 % (8-40); MCH 32.2 pg (25.7-33.7); MCHC 34.7 g/dl (32.0-36.0); MEAN CELL VOLUME 92.6 fl (80-96); MEAN PLT VOLUME 6.9 fl (7.5-11.1); MONO % 17.5 % (3.8-10.2); NEUT % 56.3 % (42.8-82.8); PLATELET COUNT 166 K/MM3 (134-434); RBC 4.71 M/mm3 (3.60-5.2); RDW 13.9 % (11.6-15.6); WHITE BLOOD COUNT 2.5 K/mm3 (4.0-10.0)
[2020-04-29 14:06] LABS: CALCIUM 9.2 mg/dL (8.5-10.1)
[2020-04-29 14:07] LABS: ALBUMIN 3.5 g/dl (3.4-5.0); BLOOD UREA NITROGEN 13.8 mg/dL (7-18); CREATININE 0.9 mg/dL (0.55-1.3)
[2020-04-29 14:08] LABS: BILIRUBIN,TOTAL 0.4 mg/dL (0.2-1); TOT PROT 8.1 g/dl (6.4-8.2)
[2020-04-29 14:21] LABS: POTASSIUM 9.9 mmol/L (3.5-5.1)
[2020-04-29 16:09] VITALS: BP 127/73; PULSE 72
== END 2020-04-29 17:37 | disposition home or self-care (01) ==
LOC: JER 12:15
DX: U07.1 COVID-19 (principal)
CPT/HCPCS: 36415; 80053; 84132; 85025; 99284-25; M0239; Q0239

== ENCOUNTER 2022-06-13 04:33 | Day surgery (SDC) | payer OTHER ==
[2022-06-11 16:34] VITALS: BMI 28.4
[2022-06-13 11:07] VITALS: TEMP 96.8
[2022-06-13 11:43] VITALS: RESP 18
[2022-06-13 11:50] VITALS: BP 150/78; PULSE 72
== END 2022-06-13 12:11 | disposition home or self-care (01) ==
LOC: JASU-ENDO 04:33
PROVIDERS: ATTEND Internal Medicine Gastroenterology
PROC: 0DBM8ZX Excision of Descending Colon, Via Natural or Artificial Opening Endoscopic, Diagnostic (ICD-10-PCS; 2022-06-13)
PROC: 0DBN8ZX Excision of Sigmoid Colon, Via Natural or Artificial Opening Endoscopic, Diagnostic (ICD-10-PCS; 2022-06-13)
PROC: 0DB98ZX Excision of Duodenum, Via Natural or Artificial Opening Endoscopic, Diagnostic (ICD-10-PCS; 2022-06-13)
PROC: 0DB78ZX Excision of Stomach, Pylorus, Via Natural or Artificial Opening Endoscopic, Diagnostic (ICD-10-PCS; 2022-06-13)
PROC: 0DB68ZX Excision of Stomach, Via Natural or Artificial Opening Endoscopic, Diagnostic (ICD-10-PCS; 2022-06-13)
PROC: 0DB48ZX Excision of Esophagogastric Junction, Via Natural or Artificial Opening Endoscopic, Diagnostic (ICD-10-PCS; 2022-06-13)
PROC: 0D5L8ZZ Destruction of Transverse Colon, Via Natural or Artificial Opening Endoscopic (ICD-10-PCS; principal; 2022-06-13 10:00)
DX: Z12.11 Encounter for screening for malignant neoplasm of colon (principal); D12.4 Benign neoplasm of descending colon; D12.5 Benign neoplasm of sigmoid colon; D12.3 Benign neoplasm of transverse colon; K57.30 Diverticulosis of large intestine without perforation or abscess without bleeding; K64.8 Other hemorrhoids; K21.00 Gastro-esophageal reflux disease with esophagitis, without bleeding; K44.9 Diaphragmatic hernia without obstruction or gangrene; K29.50 Unspecified chronic gastritis without bleeding; B96.81 Helicobacter pylori [H. pylori] as the cause of diseases classified elsewhere
CPT/HCPCS: 88305-TC; 88342-TC

== ENCOUNTER 2022-07-05 12:48 | Emergency (ER) | payer OTHER ==
[2022-07-05 12:52] VITALS: BP 125/72; PULSE 91; RESP 18; TEMP 98.4; BMI 29.2
== END 2022-07-05 14:20 | disposition home or self-care (01) ==
LOC: JERFT 12:48
DX: R51.9 Headache, unspecified (principal); R42 Dizziness and giddiness; M54.2 Cervicalgia; V49.40XA Driver injured in collision with unspecified motor vehicles in traffic accident, initial encounter; Y93.I9 Activity, other involving external motion
CPT/HCPCS: 70450-TC; 72125-TC; 99284-25

== ENCOUNTER 2024-05-03 05:28 | Day surgery (SDC) | payer OTHER ==
[2024-05-03] MEDS ORDERED: PROPOFOL 20 ML ONE (14:58)
[2024-05-03] MEDS ORDERED: LIDOCAINE HCL/PF 2% SDV 5ML VIAL ONE (14:58)
[2024-05-03] MEDS ORDERED: ROCURONIUM BROMIDE 50 MG/5 ML SYRINGE ONE ×2 (14:59→15:36)
[2024-05-03] MEDS ORDERED: MIDAZOLAM HCL 2 MG/2 ML SINGLE DOSE VIAL ONE (14:59)
[2024-05-03] MEDS ORDERED: SUCCINYLCHOLINE CHLORIDE 200 MG/10 ML SYRINGE ONE (14:59)
[2024-05-03] MEDS ORDERED: HEPARIN NA (PORCINE) 5,000 UNITS/ML 1ML VIAL ONE (15:18)
[2024-05-03] MEDS ORDERED: BUPIVACAINE HCL/PF 0.25% (2.5MG/ML) 10 ML VIAL ONE (15:18)
[2024-05-03] MEDS ORDERED: cefOXitin SODIUM 2 GM VIAL (RESTRICTED TO ID) IVPB ONE (15:19)
[2024-05-03] MEDS: cefOXitin SODIUM 2 GM VIAL (RESTRICTED TO ID) IVPB ONE ×2 (16:25)
[2024-05-03] MEDS ORDERED: DEXAMETHASONE SOD PHOSPHATE 4 MG/1 ML VIAL ONE (16:31)
[2024-05-03] MEDS: BUPIVACAINE HCL/PF 0.25% (2.5MG/ML) 10 ML VIAL IJ ONE ×2 (16:55)
[2024-05-03] MEDS ORDERED: ONDANSETRON 4 MG/2 ML VIAL IVPUSH PRN (17:16)
[2024-05-03] MEDS ORDERED: PROMETHAZINE HCL 25 MG/1 ML VIAL IVPB PRN (17:16)
[2024-05-03] MEDS ORDERED: PHENYLEPHRINE HCL 10 MG/1 ML SINGLE DOSE VIAL ONE (17:30)
[2024-05-03] MEDS ORDERED: LACTATED RINGERS SOLUTION 1,000 ML IV SCH (17:30)
[2024-05-03] MEDS ORDERED: TRANEXAMIC ACID 1000 MG/10 ML VIAL ONE (17:44)
[2024-05-03] MEDS ORDERED: SEVOFLURANE 250 ML BTL ONE ×2 (18:23→18:38)
[2024-05-03] MEDS ORDERED: HYDROmorphone HCl 2 MG/ML VIAL ONE (19:34)
[2024-05-03] MEDS ORDERED: NEOSTIGMINE METHYLSULFATE 0.5 MG/1 ML - 10 ML MDV ONE (20:37)
[2024-05-03] MEDS ORDERED: GLYCOPYRROLATE 0.2 MG/1 ML VIAL ONE (20:37)
[2024-05-03] MEDS ORDERED: SUGAMMADEX SODIUM 200 MG/2 ML VIAL ONE (20:59)
[2024-05-03] MEDS ORDERED: oxyCODONE HCL 5 MG TABLET PO PRN ×2 (21:20)
[2024-05-03] MEDS ORDERED: ALBUTEROL SO4 HFA INHALER IH PRN (21:30)
[2024-05-03] MEDS ORDERED: METOCLOPRAMIDE HCL INJECTION 10 MG/2 ML VIAL ONE (22:00)
[2024-05-03] MEDS ORDERED: ACETAMINOPHEN INJECTION 100 ML ONE (22:01)
[2024-05-03] MEDS: ACETAMINOPHEN 1000 MG/100 ML BAG IVPB ONE (22:05)
[2024-05-03] MEDS: METOCLOPRAMIDE HCL INJECTION 10 MG/2 ML VIAL IVPUSH SCH (22:11)
[2024-05-03] MEDS: LACTATED RINGERS SOLUTION 1,000 ML IV SCH (23:31)
[2024-05-03] MEDS: ROSUVASTATIN CA 10 MG TABLET PO SCH (23:51)
[2024-05-04] MEDS: ONDANSETRON 4 MG/2 ML VIAL IVPUSH SCH (01:21)
[2024-05-04] MEDS: ACETAMINOPHEN 1000 MG/100 ML BAG IVPB SCH (01:23)
[2024-05-04] MEDS: PANTOPRAZOLE SODIUM 40 MG VIAL IVPUSH SCH (09:15)
[2024-05-04] MEDS: ENOXAPARIN NA (PORCINE) 40 MG/0.4 ML DISP.SYRIN SQ SCH (09:15)
[2024-05-04 09:16] LABS: ABSOLUTE IMMATURE GRANULOCYTES 0.03 x10^3/uL (0.0-0.031); HEMATOCRIT 38.4 % (34.1-44.9); HEMOGLOBIN 12.5 g/dL (11.2-15.7); MCHC 32.6 g/dl (32.2-35.5); MEAN CELL VOLUME 92.1 fl (79.4-94.8); MEAN PLT VOLUME 8.9 fl (9.4-12.3); MONOCYTE # 0.45 x10^3/uL (0.24-0.86); MONOCYTE % 6.2 % (4.7-12.5); PLATELET COUNT 178 x10^3/uL (182-369)
[2024-05-04 09:29] LABS: POTASSIUM 4.1 mmol/L (3.5-5.1)
[2024-05-04 09:31] LABS: BLOOD UREA NITROGEN 13.3 mg/dL (7-18); CALCIUM 9.4 mg/dL (8.5-10.1)
[2024-05-04 09:35] LABS: CREATININE 0.7 mg/dL (0.55-1.3)
[2024-05-04] MEDS ORDERED: FLUTICASONE PROP 0.05% 16 GM NASAL SPRAY NS PRN (10:00)
[2024-05-04] MEDS ORDERED: LORATADINE 10 MG TABLET PO PRN (10:00)
[2024-05-04] MEDS ORDERED: ACETAMINOPHEN 500 MG TABLET (FP) PO SCH (18:30)
[2024-05-04] MEDS: ACETAMINOPHEN 500 MG TABLET (FP) PO SCH (20:35)
[2024-05-04] MEDS: LOSARTAN POTASSIUM 50 MG TABLET PO SCH (22:06)
[2024-05-04 22:52] VITALS: RESP 20
[2024-05-05 06:29] VITALS: TEMP 97.9
[2024-05-05] MEDS: LACTATED RINGERS SOLUTION 1,000 ML IV SCH (11:13)
[2024-05-05 11:27] VITALS: BP 136/71; PULSE 81
== END 2024-05-05 11:16 | disposition home health service (06) ==
LOC: SUATTDRO 05:28 → JASUSAT 05:28 → J8W 23:45 → JASUSAT 05-05 11:16
PROVIDERS: ATTEND Nurse Practitioner Acute Care
PROC: 8E0W4CZ Robotic Assisted Procedure of Trunk Region, Percutaneous Endoscopic Approach (ICD-10-PCS; 2024-05-03)
PROC: 0WQF0ZZ Repair Abdominal Wall, Open Approach (ICD-10-PCS; 2024-05-03)
PROC: 0DB60ZZ Excision of Stomach, Open Approach (ICD-10-PCS; 2024-05-03)
PROC: 0DB64ZX Excision of Stomach, Percutaneous Endoscopic Approach, Diagnostic (ICD-10-PCS; 2024-05-03)
PROC: 0DJ08ZZ Inspection of Upper Intestinal Tract, Via Natural or Artificial Opening Endoscopic (ICD-10-PCS; 2024-05-03)
PROC: 0BQT4ZZ Repair Diaphragm, Percutaneous Endoscopic Approach (ICD-10-PCS; principal; 2024-05-03 13:15)
DX: K44.9 Diaphragmatic hernia without obstruction or gangrene (principal); K46.9 Unspecified abdominal hernia without obstruction or gangrene; C49.A2 Gastrointestinal stromal tumor of stomach; I10 Essential (primary) hypertension; E78.5 Hyperlipidemia, unspecified; I44.7 Left bundle-branch block, unspecified; K21.9 Gastro-esophageal reflux disease without esophagitis; E04.1 Nontoxic single thyroid nodule; E53.8 Deficiency of other specified B group vitamins; H40.9 Unspecified glaucoma; K86.2 Cyst of pancreas; M54.32 Sciatica, left side; I42.9 Cardiomyopathy, unspecified
CPT/HCPCS: 43235; 43281; 43659; 49591; S2900; 36415; 74240-TC-FY; 80048; 85025; 86850; 86900; 86901; 88302-TC; 88307-TC; 88341-TC; 88342-TC; 94760; J0131; J1644